=== PATIENT | male | born 1990 | race African-American/Black ===

== ENCOUNTER 2021-06-22 21:27 | Emergency (ER) | payer MEDICAID ==
[~2021-06-22] VITALS: Ht 160 cm; Wt 79.5 kg
[2021-06-22 22:40] VITALS: BP 129/70
[2021-06-22 23:07] LABS: COVID AG,FIA SOURCE NASOPHARYNGEAL
== END 2021-06-22 23:51 | disposition home or self-care (01) ==
LOC: EMS 21:29
DX: Z20.822 Contact with and (suspected) exposure to COVID-19 (principal); F17.210 Nicotine dependence, cigarettes, uncomplicated
CPT/HCPCS: 87426; 99283; U0003

== ENCOUNTER 2021-06-30 14:11 | Emergency (ER) | payer MEDICAID ==
[~2021-06-30] VITALS: Ht 165.1 cm; Wt 72.7 kg
[2021-06-30 14:14] VITALS: BP 144/88
[2021-06-30 14:41] LABS: COVID AG,FIA SOURCE NASOPHARYNGEAL
== END 2021-06-30 15:18 | disposition home or self-care (01) ==
LOC: EMS 14:11
DX: Z20.822 Contact with and (suspected) exposure to COVID-19 (principal); F17.210 Nicotine dependence, cigarettes, uncomplicated
CPT/HCPCS: 99283

== ENCOUNTER 2022-01-27 21:28 | Emergency (ER) | payer SELFPAY ==
[~2022-01-27] VITALS: Ht 165.1 cm; Wt 72.7 kg
[2022-01-27] MEDS ORDERED: CefTRIAXone SODIUM 1 GM/VIAL IM ONE (22:15)
[2022-01-27] MEDS ORDERED: DOXYCYCLINE HYCLATE 100 MG TABLET PO ONE (22:15)
[2022-01-27] MEDS ORDERED: LIDOCAINE/PF 1% 2 ML VIAL IM ONE (22:15)
[2022-01-27 22:21] LABS: COVID AG,FIA SOURCE NASOPHARYNGEAL
[2022-01-27] MEDS ORDERED: DOXY-354 PO (22:59)
[2022-01-27 23:22] VITALS: BP 116/61
== END 2022-01-27 23:32 | disposition home or self-care (01) ==
LOC: EMS 21:29
DX: N34.2 Other urethritis (principal); Z20.822 Contact with and (suspected) exposure to COVID-19; Z77.22 Contact with and (suspected) exposure to environmental tobacco smoke (acute) (chronic)
CPT/HCPCS: 87426; 87491; 87591; 96372; 99283; J0696; J3490